=== PATIENT | male | born 1995 | race Caucasian/White ===

== ENCOUNTER 2017-09-07 12:19 | Emergency (ER) | payer BC ==
[2017-09-07] MEDS ORDERED: Ketorolac 60 MG/2 ML SDV IM ONE (12:49)
--- NOTE | 2017-09-07 12:52 | EDM.PDOC ---
ED HPI GENERAL MEDICAL PROBLEM - General Chief Complaint: Trauma Stated Complaint: INJURED RT ARM Time Seen by Provider: 09/07/17 12:40 Source of Information: Reports: Patient History Limitations: Reports: No Limitations - History of Present Illness INITIAL COMMENTS - FREE TEXT/NARRATIVE: Daren comes into [facility] ED with injuries to his R forehead and R elbow after a fall this am while moving a 400# wagon wheel preparing for a wedding. He lost balance and the wheel threw him against a fence. There was no LOC. He does report a headache, some nausea, and marked R elbow pain and stiffness. In addition, there is also some tingling in the ring and little finger on the R. He has taken no meds. - Related Data Allergies Allergy/AdvReac Type Severity Reaction Status Date / Time cats Allergy Other Uncoded 09/07/17 13:30 Home Meds: Home Meds Hydrocodone/Acetaminophen [Vicodin Es 7.5-300 mg Tablet] 1 each PO Q6HR PRN #20 tablet 09/07/17 [Rx] Review of Systems - Review of Systems Review Of Systems: ROS reveals no pertinent complaints other than HPI. ED EXAM, GENERAL - Physical Exam Exam: See Below Exam Limited By: No Limitations General Appearance: Alert, WD/WN, Mild Distress, Obese Eye Exam: Bilateral Eye: EOMI, Normal Inspection, PERRL Ears: Normal External Exam Nose: Normal Inspection Throat/Mouth: Normal Inspection, Normal Lips, Normal Teeth, Normal Gums, Normal Oropharynx, Normal Voice, No Airway Compromise Head: Facial Tenderness (minor contusion overlying R forehead, no step off) Neck: Normal Inspection, Supple, Non-Tender, Full Range of Motion Respiratory/Chest: Lungs Clear, Normal Breath Sounds Cardiovascular: Regular Rate, Rhythm, No Murmur Back Exam: Normal Inspection Extremities: Joint Swelling (R elbow: small joint effusion, tenderness overlying radial head, tinels sign neg at notch), Limited Range of Motion (pain with extension, flexion, pronation and supination) Neurological: Alert, Oriented, CN II-XII Intact, Normal Cognition, Normal Gait, No Motor/Sensory Deficits Psychiatric: Normal Affect, Normal Mood Skin Exam: Warm, Dry, Intact Lymphatic: No Adenopathy Course - Vital Signs Text/Narrative:: X rays confirm a transverse fx of R radial head with angulation. Case discussed with Dr Kerr by phone, who is out of town today. Daren was placed into a sling, RICE and analgesics, and will pursue orthopedic management in [place], [place] when he returns home. - Orders/Labs/Meds Orders: Active Orders 24 hr Category Date Time Status Elbow Min 3V Rt [CR] Stat Exams 09/07/17 12:49 Taken Meds: Medications Discontinued Medications Generic Name Dose Route Start Last Admin Trade Name Freq PRN Reason Stop Dose Admin Ketorolac Tromethamine 60 mg 09/07/17 12:49 09/07/17 13:00 Toradol IM 09/07/17 12:50 60 mg ONETIME ONE Administration Departure - Departure Time of Disposition: 13:37 Disposition: Home, Self-Care 01 Condition: Fair Clinical Impression: Right radial head fracture Qualifiers: Encounter type: initial encounter Fracture type: closed Fracture alignment: displaced Qualified Code(s): S52.121A - Displaced fracture of head of right radius, initial encounter for closed fracture Contusion of forehead Qualifiers: Encounter type: initial encounter Qualified Code(s): S00.83XA - Contusion of other part of head, initial encounter - Discharge Information Prescriptions: Hydrocodone/Acetaminophen [Vicodin Es 7.5-300 mg Tablet] 1 each PO Q6HR PRN #20 tablet PRN Reason: Breakthrough Pain Referrals: PCP,None [Primary Care Provider] - Forms: ED Department Discharge - Problem List & Annotations (1) Contusion of forehead SNOMED Code(s): 129017550 Code(s): S00.83XA - CONTUSION OF OTHER PART OF HEAD, INITIAL ENCOUNTER Status: Acute Current Visit: Yes Annotation/Comment:: Ice packs and analgesics for comfort. Qualifiers: Encounter type: initial encounter Qualified Code(s): S00.83XA - Contusion of other part of head, initial encounter (2) Right radial head fracture SNOMED Code(s): 005981173 Code(s): S52.121A - DISP FX OF HEAD OF RIGHT RADIUS, INIT FOR CLOS FX Status: Acute Current Visit: Yes Annotation/Comment:: Follow up with Orthopedics at home in [place], [place]. I dispensed Vicodin 7.5/325 q 6hrs prn for pain, RICE and sling. Qualifiers: Encounter type: initial encounter Fracture type: closed Fracture alignment: displaced Qualified Code(s): S52.121A - Displaced fracture of head of right radius, initial encounter for closed fracture - Problem List Review Problem List Initiated/Reviewed/Updated: Yes - My Orders Last 24 Hours: My Active Orders 09/07/17 12:49 Elbow Min 3V Rt [CR] Stat - Assessment/Plan Last 24 Hours: My Active Orders 09/07/17 12:49 Elbow Min 3V Rt [CR] Stat Plan: Follow up with PCP and Ortho when returns home.
--- NOTE | 2017-09-07 14:59 | CR ---
INDICATION: Fall, suspect fracture. RIGHT ELBOW: Three views of the right elbow were obtained. The patient was unable to straighten the elbow or position for 90-degree view. There is a transverse fracture through the proximal radial metaphysis with offset and anterior angulation producing fairly severe deformity. Joint effusion is noted. The ulna appears to be intact. The humerus appears to be intact also. IMPRESSION: Radial head fracture with deformity at the elbow joint and with joint effusion present. Report was given by phone to Dr. Maharaj immediately after the examination was completed on 09/07/2017. GRACIE
== END 2017-09-07 14:05 | disposition home or self-care (01) ==
LOC: FB.ED 12:19
DX: S52.121A Displaced fracture of head of right radius, initial encounter for closed fracture (principal); S00.83XA Contusion of other part of head, initial encounter; Z91.048 Other nonmedicinal substance allergy status; W19.XXXA Unspecified fall, initial encounter
CPT/HCPCS: 73080; 96372; 99283; J1885